=== PATIENT | male | born 1995 | race Caucasian/White ===

== ENCOUNTER 2017-02-21 01:21 | Emergency (ER) | payer OTHER ==
[~2017-02-21 01:21] MED LIST: ABILIFY PO; NO MEDICATIONS; VOLTAREN75 MG PO
== END 2017-02-21 02:05 | disposition home or self-care (01) ==
LOC: SED 01:21
DX: B35.4 Tinea corporis (principal); F17.210 Nicotine dependence, cigarettes, uncomplicated
CPT/HCPCS: 82947; 99283